=== PATIENT | female | born 1970 | race Caucasian/White ===

== ENCOUNTER 2024-09-13 01:15 | Outpatient (CLI) | payer BC, SELFPAY ==
--- NOTE | 2024-09-13 | DI.MRI_ITS ---
Exam(s) MR LOWER JOINT LT WO EXAM: MR LOWER JOINT LT WO CLINICAL HISTORY: LT KNEE PAIN,SWELLING, LOSS OF MOTION,M23.92,INTERNAL DERANGEMENT. TECHNIQUE: Multiplanar multisequence MRI was performed. COMPARISON: CR XR KNEE LEFT 4 OR MORE VIEWS from 09/08/2024 FINDINGS: BONES: There is no fracture or contusion pattern. JOINTS: There is thinning of the articular cartilage in the medial femoral tibial joint overlying the medial femoral condyle. There is a small joint effusion. TENDONS: Extensor mechanism: Unremarkable. Medial retinaculum: Unremarkable. Lateral retinaculum: Unremarkable. Popliteus: Unremarkable. MUSCLES: Unremarkable. MENISCI: There is degenerative signal seen in the medial meniscus but no evidence of a tear. The lat eral meniscus is unremarkable. SOFT TISSUES: There is edema seen in the subcutaneous tissues anterior to the patella in the extensor mechanism. No focal fluid collection is seen. LIGAMENTS: Anterior Cruciate: Unremarkable. Posterior Cruciate: Unremarkable. Medial Collateral:Unremarkable. Lateral Collateral: Unremarkable. OTHER: IMPRESSION: 1. No evidence of a meniscal or ligament tear. 2. 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 3. Small joint effusion. 4. Prepatellar edema. DATA REPOSITORY:
== END 2024-09-13 01:35 ==
PROVIDERS: Visit Provider Nurse Practitioner Adult Health
DX: M23.92 Unspecified internal derangement of left knee (principal)
CPT/HCPCS: 73721